=== PATIENT | female | born 1955 | race Caucasian/White ===

== ENCOUNTER 2017-10-15 14:57 | Outpatient (CLI) | payer BC, OTHER | END 2017-10-15 14:58 | disposition home or self-care (01) | LOC: SCSMRI 14:57 | PROVIDERS: ATTEND Otolaryngology Plastic Surgery within the Head & Neck | DX: R42 Dizziness and giddiness (principal); Z53.8 Procedure and treatment not carried out for other reasons ==

== ENCOUNTER 2018-07-18 08:49 | Outpatient (CLI) | payer BC, OTHER | END 2018-07-18 08:50 | disposition home or self-care (01) | LOC: BICMAMMO 08:49 | PROVIDERS: ATTEND Physician Assistant | DX: Z12.31 Encounter for screening mammogram for malignant neoplasm of breast (principal); M81.0 Age-related osteoporosis without current pathological fracture; M85.89 Other specified disorders of bone density and structure, multiple sites; Z80.3 Family history of malignant neoplasm of breast; Z78.0 Asymptomatic menopausal state | CPT/HCPCS: 77063; 77067; 77080 ==

== ENCOUNTER 2018-08-25 09:25 | Outpatient (CLI) | payer BC ==
--- NOTE | 2018-08-25 11:27 | ULT ---
THYROID ULTRASOUND: COMPARISON: 08/26/2017. CLINICAL HISTORY: Thyroid nodules, followup. FINDINGS: Redemonstration of multiple bilateral thyroid nodules, many of which are cystic in morphology. There is a solid, slightly hypoechoic nodule measuring 1.5 cm within the mid left thyroid lobe, which has increased from 1.1cm on prior exam. 1.4 cm hypoechoic solid nodule of the right lobe is present. The demonstrated right thyroid length is 4.1 cm and the left thyroid length 4.8 cm. Thyroid isthmus lara sures 2 mm. IMPRESSION: Multiple thyroid nodules are redemonstrated. There is a dominant solid nodule of the left thyroid lobe, which has increased from prior exam measur ing 1.5 cm. 1.4 cm hypoechoic solid nodule of the right lobe is present. This would be amenable to FNA for further interrogation, as clinically necessary. POS: LUZ
== END 2018-08-25 09:26 | disposition home or self-care (01) ==
LOC: BICULT 09:25
PROVIDERS: ATTEND Otolaryngology Plastic Surgery within the Head & Neck
DX: E04.1 Nontoxic single thyroid nodule (principal); E04.2 Nontoxic multinodular goiter
CPT/HCPCS: 76536

== ENCOUNTER 2018-09-07 12:14 | Day surgery (SDC) | payer BC ==
[2018-09-06 15:05] VITALS: BMI 23.8
[2018-09-07] MEDS ORDERED: Lidocaine 1% PF 5 ML VIAL ONE (12:39)
[2018-09-07] MEDS ORDERED: Sodium Bicarbonate 2.5 MEQ/5 ML VIAL ONE (12:39)
[2018-09-07 13:21] VITALS: BP 146/85; TEMP 97.9
--- NOTE | 2018-09-07 15:46 | ULT ---
ULTRASOUND GUIDED FNA OF SUSPICIOUS LEFT THYROID NODULE: 09/07/18 INDICATION: Suspicious left sided thyroid nodule. COMPARISON: Prior exam dated 08/25/18. TECHNIQUE: Preprocedure ultrasound demonstrated the large 1.5 cm slightly nodule within the lower pole of the le ft thyroid gland as identified on the prior exam. Informed consent was obtained. The neck was prepp ed and draped in the usual sterile fashion. Buffered 1% lidocaine was administered overlying the subc utaneous tissues and overlying strap muscle. Under ultrasound guidance, four separate FNA sample were obtained of the solid nodule within the lower pole left thyroid gland. The engineering technical analyst was on sit e to verify adequacy of the sampling. Postprocedure images demonstrate no significant hematoma. Anne ent tolerated the FNA without difficulty. IMPRESSION: Successful ultrasound guided FNA of the solid nodule involving the lower pole of the left thyroid gla nd. POS: LUZ
== END 2018-09-07 13:42 | disposition home or self-care (01) ==
LOC: ULT 12:14
PROVIDERS: ATTEND Otolaryngology Plastic Surgery within the Head & Neck
PROC: 0G9G3ZX Drainage of Left Thyroid Gland Lobe, Percutaneous Approach, Diagnostic (ICD-10-PCS; principal; 2018-09-07)
DX: E04.1 Nontoxic single thyroid nodule (principal); J44.9 Chronic obstructive pulmonary disease, unspecified; E78.00 Pure hypercholesterolemia, unspecified; M81.0 Age-related osteoporosis without current pathological fracture; M06.9 Rheumatoid arthritis, unspecified; K21.9 Gastro-esophageal reflux disease without esophagitis; J32.9 Chronic sinusitis, unspecified; J30.9 Allergic rhinitis, unspecified; J34.89 Other specified disorders of nose and nasal sinuses; Z79.1 Long term (current) use of non-steroidal anti-inflammatories (NSAID); Z79.51 Long term (current) use of inhaled steroids; Z79.899 Other long term (current) drug therapy; Z88.5 Allergy status to narcotic agent
CPT/HCPCS: 10022; 76942; 88173; 88305; J2001

== ENCOUNTER 2019-04-10 10:46 | Outpatient (CLI) | payer MEDICARE, OTHER ==
--- NOTE | 2019-04-10 11:07 | RAD ---
EXAM: 2 views of the right femur HISTORY: Leg pain for 3 weeks COMPARISON: None FINDINGS: There is no evidence of acute fracture or dislocation. No soft tissue swelling is seen. No degenerative changes are seen in the hip. IMPRESSION: No evidence of acute osseous abnormality.
== END 2019-04-10 10:47 | disposition home or self-care (01) ==
LOC: BICRAD 10:46
PROVIDERS: ATTEND Internal Medicine Rheumatology
DX: M79.604 Pain in right leg (principal); M81.0 Age-related osteoporosis without current pathological fracture

== ENCOUNTER 2019-06-16 10:16 | Outpatient (CLI) | payer MEDICARE, OTHER ==
--- NOTE | 2019-06-16 11:33 | ULT ---
HEPATIC ULTRASOUND WITH MIKE SCALE AND COLOR FLOW AND SPECTRAL DOPPLER IMAGING: Date: 06/16/19 HISTORY: Abnormal liver function tests. FINDINGS: There is a cyst in the right lobe measuring 2.7 cm. The spleen is normal. No gallstones, gallbladder wall thickening, or pericholecystic fluid is seen. The common duct measures 4 mm in diameter. The diaz creas is unremarkable. No free fluid is seen. There is normal flow and spectral waveforms in the hepatic, portal, and splenic vasculature. IMPRESSION: Hepatic cyst. POS: LUZ
== END 2019-06-16 10:17 | disposition home or self-care (01) ==
LOC: BICULT 10:16
PROVIDERS: ATTEND Physician Assistant Medical
DX: R94.5 Abnormal results of liver function studies (principal); K76.89 Other specified diseases of liver
CPT/HCPCS: 76705

== ENCOUNTER 2019-07-19 08:02 | Outpatient (CLI) | payer MEDICARE, OTHER ==
--- NOTE | 2019-07-19 09:23 | MMO ---
Bilateral MAMMO Bilat Screen [facility]. CLINICAL HISTORY: Patient is 64 years old and is seen for screening. The patient has the following family history of breast cancer: maternal aunt. The patient has no personal history of cancer. The patient has a history of right Excisional Biopsy in 14 years ago - benign and left Excisional Biopsy in 10 years ago - benign. VIEWS: The views performed were: bilateral craniocaudal with tomosynthesis and bilateral mediolateral oblique with tomosynthesis. FILMS COMPARED: The present examination has been compared to prior imaging studies performed at [facility] on 06/07/2015, 06/12/2016, 07/16/2017 and 07/18/2018. MAMMOGRAM FINDINGS: There are scattered fibroglandular densities. There are stable benign appearing calcifications seen in both breasts. There are no suspicious masses, suspicious calcifications, or new areas of architectural distortion. IMPRESSION: THERE IS NO MAMMOGRAPHIC EVIDENCE OF MALIGNANCY. A ROUTINE FOLLOW-UP MAMMOGRAM IN 1 YEAR IS RECOMMENDED. THE RESULTS OF THIS EXAM WERE SENT TO THE PATIENT. ACR BI-RADS Category 2 - Benign finding MAMMOGRAPHY NOTE: 1. A negative mammogram report should not delay a biopsy if a dominant of clinically suspicious mass is present. 2. Approximately 10% to 15% of breast cancers are not detected by mammography. 3. Adenosis and dense breasts may obscure an underlying neoplasm. Reported by: ALTAF GOLD MD Electonically Signed: [id number]
--- NOTE | 2019-07-19 09:48 | BD ---
DEXA BONE DENSITY STUDY: HISTORY: Postmenopausal. FINDINGS: Lumbar Spine: BMD (g/cm2) L1 0.841 T-Score: -1.4 L2 0.880 T-Score: -1.3 L3 0.975 T-Score: -1.0 L4 0.967 T-Score: -0.9 L1-L4 0.919 T-Score: -1.2 Femoral Neck: 0.630 T-Score: -2.0 Total Femur: 0.841 T-Score: -0.8 Impression: Osteopenia lumbar spine and left femoral neck. POS: TPC
== END 2019-07-19 08:03 | disposition home or self-care (01) ==
LOC: BICMAMMO 08:02
PROVIDERS: ATTEND Physician Assistant
DX: Z12.31 Encounter for screening mammogram for malignant neoplasm of breast (principal); M81.0 Age-related osteoporosis without current pathological fracture; M85.89 Other specified disorders of bone density and structure, multiple sites; Z80.3 Family history of malignant neoplasm of breast; Z91.89 Other specified personal risk factors, not elsewhere classified
CPT/HCPCS: 77063; 77067; 77080

== ENCOUNTER 2019-11-29 13:58 | Outpatient (CLI) | payer MEDICARE, OTHER ==
--- NOTE | 2019-11-29 14:18 | RAD ---
CHEST 2 VIEWS: Date: 11/29/2019 HISTORY: Tuberculosis. COMPARISON: None. FINDINGS: There is high grade reverse S-shaped scoliosis of the thoracic spine. Calcified granulomas in the rig ht upper lobe and lingula and left lower lobe. No focal confluent air space consolidation, pneumothor ax, or effusion. Mild blunting both lateral costophrenic sulci, likely chronic in nature. IMPRESSION: No acute intrathoracic abnormality. Chronic findings as described. POS: TPC
== END 2019-11-29 13:59 | disposition home or self-care (01) ==
LOC: BICRAD 13:58
PROVIDERS: ATTEND Physician Assistant
DX: A15.9 Respiratory tuberculosis unspecified (principal); M41.9 Scoliosis, unspecified; J84.10 Pulmonary fibrosis, unspecified
CPT/HCPCS: 36415; 71046; 80053; 85025

== ENCOUNTER 2020-06-06 14:24 | Outpatient (CLI) | payer MEDICARE, OTHER ==
--- NOTE | 2020-06-06 15:20 | RAD ---
XR Chest Pa Lat STANDARD History: Tuberculosis Comparison: Radiograph November 2019 Findings: High-grade reverse S shaped scoliosis. Cardiac silhouette and basal contours are similar. M ultiple calcified granulomas. No acute osseous abnormality. No pulmonary consolidation, pneumothorax or effusion. Impression: Obstructive pulmonary disease with high-grade reverse S shaped scoliosis. No acute intrat horacic abnormality.
== END 2020-06-06 14:25 | disposition home or self-care (01) ==
LOC: BICRAD 14:24
PROVIDERS: ATTEND Physician Assistant
DX: A15.9 Respiratory tuberculosis unspecified (principal); J44.9 Chronic obstructive pulmonary disease, unspecified; M41.80 Other forms of scoliosis, site unspecified
CPT/HCPCS: 71046

== ENCOUNTER 2020-08-02 13:09 | Outpatient (CLI) | payer MEDICARE, OTHER ==
--- NOTE | 2020-08-02 14:06 | BD ---
EXAM: DEXA bone density examination HISTORY: 65-year-old postmenopausal female for screening COMPARISON: 07/19/2019 FINDINGS: L1--bone mineral density 0.840 g/sq cm; T score -1.4 L2--bone mineral density 0.898 g/sq cm; T score -1.2 L3--bone mineral density 0.951 g/sq cm; T score -1.2 L4--bone mineral density 0.963 g/sq cm; T score -0.9 Total L1-L4--bone mineral density 0.918 g/sq cm; T score -1.2 Left femoral neck--bone mineral density0.656; T score -1.7 Total proximal left femur--bone mineral density 0.878; T score -0.5 IMPRESSION: Osteopenia. When compared to the prior examination, the bone density in the hip has incre ased approximately 4% and the bone density in the spine has not changed significantly.
--- NOTE | 2020-08-02 15:19 | MMO ---
Bilateral MAMMO Bilat Screen [facility]. CLINICAL HISTORY: Patient is 65 years old and is seen for screening. The patient has the following family history of breast cancer: maternal aunt. The patient has no personal history of cancer. The patient has a history of right Excisional Biopsy in 14 years ago - benign and left Excisional Biopsy in 10 years ago - benign. VIEWS: The views performed were: bilateral craniocaudal with tomosynthesis and bilateral mediolateral oblique with tomosynthesis. FILMS COMPARED: The present examination has been compared to prior imaging studies performed at [facility] on 06/12/2016, 07/16/2017, 07/18/2018 and 07/19/2019. This study has been interpreted with the assistance of computer-aided detection. MAMMOGRAM FINDINGS: There are scattered fibroglandular densities. Finding 1: Benign calcifications are noted bilaterally. Finding 2: There is a questionable nodule in the left lower breast seen on MLO view. IMPRESSION: FINDING 1: FINDINGS IN BOTH BREASTS ARE BENIGN. FINDING 2: FINDING IN THE LEFT BREAST REQUIRES ADDITIONAL EVALUATION. SPOT COMPRESSION IS RECOMMENDED. AN ULTRASOUND EXAM IS RECOMMENDED. ADDITIONAL IMAGING. THE RESULTS OF THIS EXAM WERE SENT TO THE PATIENT. ACR BI-RADS Category 0 - Incomplete: Need additional imaging evaluation. [facility] will notify the patient of the need for additional imaging services. MAMMOGRAPHY NOTE: 1. A negative mammogram report should not delay a biopsy if a dominant of clinically suspicious mass is present. 2. Approximately 10% to 15% of breast cancers are not detected by mammography. 3. Adenosis and dense breasts may obscure an underlying neoplasm. Reported by: CATHERINE VILLATORO MD Electonically Signed: [id number]
== END 2020-08-02 13:10 | disposition home or self-care (01) ==
LOC: BICMAMMO 13:09
PROVIDERS: ATTEND Physician Assistant
DX: Z12.31 Encounter for screening mammogram for malignant neoplasm of breast (principal); M81.0 Age-related osteoporosis without current pathological fracture; M85.89 Other specified disorders of bone density and structure, multiple sites; Z80.3 Family history of malignant neoplasm of breast; Z91.89 Other specified personal risk factors, not elsewhere classified
CPT/HCPCS: 77063; 77067; 77080

== ENCOUNTER 2020-08-07 14:37 | Outpatient (CLI) | payer MEDICARE, OTHER ==
--- NOTE | 2020-08-07 16:06 | MMO ---
Left Breast MAMMO Unilat Diag [facility]. CLINICAL HISTORY: Patient is 65 years old and is seen for diagnostic exam. The patient has the following family history of breast cancer: maternal aunt. The patient has no personal history of cancer. The patient has a history of right Excisional Biopsy in 14 years ago - benign and left Excisional Biopsy in 10 years ago - benign. VIEWS: The views performed were: left craniocaudal with tomosynthesis; left mediolateral oblique with tomosynthesis; and left mediolateral with tomosynthesis. FILMS COMPARED: The present examination has been compared to prior imaging studies performed at [facility] on 07/18/2018, 07/19/2019, 08/02/2020 and 08/07/2020. This study has been interpreted with the assistance of computer-aided detection. MAMMOGRAM FINDINGS: There are scattered fibroglandular densities. There is an asymmetry measuring 5 millimeters seen in the posterior lower region of the left breast. Additional views were performed. The small nodule is reproducible on the true lateral and MLO views, but not on CC view. It appears to be unchanged in size since 2013, but appears more irregular and denser now. The additional views demonstrate a questionable 2nd nodule more anterior to this one. Ultrasound shows a nonspecific small nodule that could correlate to either the nodule that has not grown since 2013 (benign), or to this questionable new, more anterior nodule. IMPRESSION: ASYMMETRY IN THE LEFT BREAST IS PROBABLY BENIGN. FOLLOW-UP IN 6 MONTHS IS RECOMMENDED. RECOMMEND SERIAL FOLLOW UP LEFT BREAST ULTRASOUNDS AND LEFT MAMMOGRAMS AT 6 MONTHS, 1 YEAR, AND 2 YEARS. THE RESULTS OF THIS EXAM WERE SENT TO THE PATIENT. ACR BI-RADS Category 3 - Probably benign finding - short interval follow-up suggested. [facility] will notify the patient of the need for additional imaging services. MAMMOGRAPHY NOTE: 1. A negative mammogram report should not delay a biopsy if a dominant of clinically suspicious mass is present. 2. Approximately 10% to 15% of breast cancers are not detected by mammography. 3. Adenosis and dense breasts may obscure an underlying neoplasm. Reported by: BLAKE GARCIA MD Electonically Signed: [id number]
--- NOTE | 2020-08-07 19:21 | ULT ---
ULTRASOUND LEFT BREAST LIMITED: 08/07/20 HISTORY: 65-year-old female with small asymmetry at posterior inferior aspect of left breast found on MLO and true lateral views of mammogram. TECHNIQUE: Focused ultrasound of the left inferior breast, from the 4 o'clock to 7 o'clock positions. FINDINGS: At the 5 o'clock position, 2 cm from the nipple, there is a small nonspecific 0.4 cm mildly hypoechoi c nodular structure, wider than tall, with no internal blood flow. Despite the appearance of acoustic shadowing on the static images, the finding could not be replicated when the radiologist scanned suhail t portion of the breast himself. It may or may not correspond to the small focal nodular densities fo und on mammogram. On mammogram, the density appears to be stable in size since 2017, but appears slig htly more dense and appears to have margins that are slightly more irregular. Those differences could be due to differences in technique. IMPRESSION: 1. BIRADS 3: Probably Benign Finding Initial Short-Interval Follow-Up Suggested Initial short-term follow up (usually 6-month) examination) 2. Uncertain findings at the inferior portion of left breast on both mammogram and ultrasound. 3. Recommend serial follow-up left breast ultrasound and left mammograms, in six months, one yea r, and two years. POS: OFF
== END 2020-08-07 14:38 | disposition home or self-care (01) ==
LOC: BICMAMMO 14:37
PROVIDERS: ATTEND Physician Assistant
DX: N63.20 Unspecified lump in the left breast, unspecified quadrant (principal)
CPT/HCPCS: 76642; 77065; G0279

== ENCOUNTER 2020-10-07 11:00 | Outpatient (CLI) | payer MEDICARE, OTHER ==
--- NOTE | 2020-10-07 12:10 | RAD ---
LEFT FOOT 3 VIEWS: Date: 10/07/2020 PROVIDED CLINICAL HISTORY: Foot pain. FINDINGS: There is no evidence for fracture or other acute osseous abnormality. Alignment appears anatomic. Janee nt spaces appear preserved. IMPRESSION: No evidence for an acute osseous abnormality or significant arthropathy. POS: RONAK
--- NOTE | 2020-10-07 12:11 | RAD ---
LEFT ANKLE 3 VIEWS: Date: 10/07/2020 PROVIDED CLINICAL HISTORY: Ankle pain. FINDINGS: There is no evidence for fracture or other acute osseous abnormality. Alignment appears anatomic. Janee nt spaces appear preserved. IMPRESSION: No evidence for an acute osseous abnormality or significant arthropathy. POS: RONAK
== END 2020-10-07 11:01 | disposition home or self-care (01) ==
LOC: BICRAD 11:00
PROVIDERS: ATTEND Physician Assistant
DX: M25.572 Pain in left ankle and joints of left foot (principal); M79.672 Pain in left foot

== ENCOUNTER 2021-01-15 10:19 | Outpatient (CLI) | payer MEDICARE | END 2021-01-15 10:20 | disposition home or self-care (01) | LOC: BICRAD 10:19 | PROVIDERS: ATTEND Physician Assistant | DX: R76.11 Nonspecific reaction to tuberculin skin test without active tuberculosis (principal) | CPT/HCPCS: 71046 ==

== ENCOUNTER 2021-01-30 10:32 | Outpatient (CLI) | payer MEDICARE, OTHER | END 2021-01-30 10:33 | disposition home or self-care (01) | LOC: BICMAMMO 10:32 | PROVIDERS: ATTEND Physician Assistant | DX: R92.8 Other abnormal and inconclusive findings on diagnostic imaging of breast (principal) | CPT/HCPCS: 76642; 77065; G0279 ==

== ENCOUNTER 2022-05-07 12:02 | Outpatient (CLI) | payer MEDICARE, OTHER | END 2022-05-07 12:03 | disposition home or self-care (01) | LOC: BICULT 12:02 | PROVIDERS: ATTEND Physician Assistant | DX: R94.6 Abnormal results of thyroid function studies (principal) | CPT/HCPCS: 76536 ==